=== PATIENT | male | born 1945 | race Caucasian/White ===

== ENCOUNTER 2016-10-30 18:42 | Emergency (ER) | payer MEDICARE ==
[2016-08-29 10:16] VITALS: BMI 23.0
[~2016-10-30 18:42] MED LIST: ALTACE2.5 MG PO; FLOMAX0.4 MG PO; GLUCOPHAGE500 MG PO; METOPROLOL TART50 MG PO; NEURONTIN 300300 MG PO; NORCO 7.5/325 T1 TA1 PO; OMEPRAZOLE40 MG PO; ZOCOR10 MG PO; [UNRECOGNIZED DRUG - OTHER]
== END 2016-10-30 23:41 | disposition left against medical advice (07) ==
LOC: D.ER 18:42
DX: R00.2 Palpitations (principal); E11.9 Type 2 diabetes mellitus without complications; I10 Essential (primary) hypertension

== ENCOUNTER → 2017-04-05 14:16 | Outpatient (CLI) | payer MEDICARE ==
[2016-08-29 10:16] VITALS: BMI 23.0
== END | disposition home or self-care (01) ==
LOC: D.RAD 14:16
DX: J32.9 Chronic sinusitis, unspecified (principal); R05 Cough

== ENCOUNTER → 2017-11-05 14:28 | Outpatient (CLI) | payer MEDICARE ==
[2016-08-29 10:16] VITALS: BMI 23.0
== END | disposition home or self-care (01) ==
LOC: D.CT 14:28
DX: I65.23 Occlusion and stenosis of bilateral carotid arteries (principal)

== ENCOUNTER → 2018-02-21 10:27 | Outpatient (CLI) | payer MEDICARE ==
[2016-08-29 10:16] VITALS: BMI 23.0
[~2018-02-21 10:27] MED LIST changes: +BRILINTA90 MG PO; +EC-NAPROSYN500 MG PO; +ULTRAM50 MG PO
== END | disposition home or self-care (01) ==
LOC: D.US 10:27
DX: N50.89 Other specified disorders of the male genital organs (principal)

== ENCOUNTER 2018-04-06 10:54 | Emergency (ER) | payer MEDICARE ==
[~2018-04-06] VITALS: Ht 177.8 cm; Wt 68.2 kg
[~2018-04-06 10:54] MED LIST changes: -BRILINTA90 MG PO; -EC-NAPROSYN500 MG PO; -ULTRAM50 MG PO
[2018-04-06 10:58] VITALS: Ht 177.8 cm; Wt 68.2 kg
[2018-04-06] MEDS ORDERED: EC-NAPROSYN500 MG PO (14:06)
[2018-04-06] MEDS ORDERED: ULTRAM50 MG PO (14:06)
[2018-04-06 14:11] VITALS: BP 162/75
== END 2018-04-06 14:11 | disposition home or self-care (01) ==
LOC: D.ER 10:54
DX: M25.551 Pain in right hip (principal); M16.11 Unilateral primary osteoarthritis, right hip; I10 Essential (primary) hypertension

== ENCOUNTER → 2018-04-11 14:27 | Outpatient (CLI) | payer MEDICARE ==
[2018-04-06 10:58] VITALS: BMI 21.5
[~2018-04-11 14:27] MED LIST changes: +BRILINTA90 MG PO; +EC-NAPROSYN500 MG PO; +ULTRAM50 MG PO
== END | disposition home or self-care (01) ==
LOC: D.MRI 14:27
DX: M25.551 Pain in right hip (principal)

== ENCOUNTER 2018-04-15 10:27 | Outpatient (CLI) | payer MEDICARE ==
[~2018-04-15] VITALS: Ht 177.8 cm; Wt 72.7 kg
--- NOTE | ~2018-04-15 | HEMODYNAMI ---
PATIENT:JAD GARAY MEDICAL RECORD: [id number] : 49 LOCATION:[facility] ADMISSION DATE: 04/15/18 Generatedon:04/15/201813:57 Patient name: JAD GARAY Patient #: [id number] SSN: DO B: 1945 Date of study: 04/15/2018 Page: Of Hemodynamic Procedure Report Patient Data Patient Demographics Procedure consent was obtained First Name: JAD Gender: Male Last Name: JARROD : 1945 Middle Initial: GLORIA Age: 72 year(s) Patient #: [id number] Race: Unknown Additional ID: [id number] Contact details [address]: [address] [place] [address] State: [place] City: [place] Zip code: [address] Past Medical History Allergies Allergen Reaction Date Comments Reported Other allergy 04/15/2018 sulfa Admission Admission Data Admission Date: 04/15/2018 Admission Time: 10:27 Lab Results Lab Result Date: 04/15/2018 Lab Result Time: 11:35 Biochemistry Name Units Result Min Max BUN mg/dl 16 --(---*)-- 7 18 Creatinine mg/dl 0.7 --(*---)-- 0.6 1.3 CBC Name Units Result Min Max Hematocrit % 45 --(*---)-- 42 54 Hemoglobin g/dl 15.5 --(-*--)-- 13.5 17.5 Procedure Procedure Types Cath Procedure Diagnostic Procedure LHC LHC w/Coronaries w/Grafts Sedation Charges Moderate Sedation up to 45 minutes PCI Procedure Coronary Stent Coronary Stent Initial Peripheral Cath Diagnostic Procedure Cath Peripheral Procedure Description Procedure Date Procedure Date: 04/15/2018 Procedure Start Time: 13:03 Procedure End Time: 13:56 Procedure Staff Name Function Parviz Tate MD Performing Physician Rafael Enciso RT Monitor Edmund Bush RN Nurse Shira Butler RT Scrub Procedure Data Cath Procedure Fluoroscopy Diagnostic fluoroscopy Total fluoroscopy Time: time: 12.9 min 12.9 min Diagnostic fluoroscopy Total fluoroscopy dose: 902 dose: 902 mGy mGy Contrast Material Contrast Material Type Amount (ml) Isovue 300 202 Entry Location Entry Primary Successful Side Size Upsize Upsize Entry Closure Succes sful Closure Location (Fr) 1 (Fr) 2 (Fr) Remarks Device Remarks Femoral Right 5 Fr 6 Fr Exoseal artery Short Estimated blood loss: 10 ml Diagnostic catheters Device Type Used For End Catheter Placement MULTIPACK JL 4.0 5Fr Procedure catheter DIAGNOSTIC AR MOD 5Fr Procedure Catheter ([id number]) DIAGNOSTIC IMT 5Fr Procedure Catheter ([id number]) MULTIPACK Pigtail 5 Fr Procedure catheter DIAGNOSTIC AR 2 MOD 5 Fr Procedure catheter ([id number]) Procedure Complications No complications Procedure Medications Medication Administration Route Dosage 0.9% NaCl I.V. 100 ml/hr Oxygen etCO2 Nasal cannula 2 l/min Heparin Flush Bag added to field 2 bags (1000units/500ml NS) Lidocaine 2% added to field 20 Benadryl I.V. 50 mg Versed I.V. 2 mg Fentanyl I.V. 100 mcg Versed I.V. 1 mg Heparin Bolus I.V. 7300 units Brilinta P.O. 180 mg Hemodynamics Rest HGB: 15.5 (g/dl) Heart Rate: 52 (bpm) Pressure Samples Time Site Value (mmHg) Purpose Heart Use Rate(bpm) 13:17 LV 144/-12,9 Snapshot 71 Gradients Valve Time Site Site Mean SEP/DFP Peak To Heart Use 1 2 (mmHg) (sec/min) Peak Rate (mmHg) (bpm) Aortic 13:18 LV AO 72 Snapshots Pre Cath Intra NCS Post Cath Vital Signs Time Heart Resp SPO2 etCO2 NIBP (mmHg) Rhythm Pain Sedation Rate (ipm) (%) (mmHg) Status Level (bpm) 12:43:38 54 15 98 0 168/68(125) NSR 0 (11) 10(A) , No pain 12:48:31 55 24 98 30.8 168/80(133) NSR 0 (11) 10(A) , No pain 12:53:22 56 15 99 36 161/67(130) NSR 0 (11) 10(A) , No pain 12:58:08 64 24 98 0 155/74(111) NSR 0 (11) 10(A) , No pain 13:02:59 69 26 98 35.3 157/74(120) NSR 0 (11) 10(A) , No pain 13:07:46 68 14 96 0 155/68(116) NSR 0 (11) 9(A) , No pain 13:12:35 75 17 96 0 158/73(125) NSR 0 (11) 9(A) , No pain 13:17:19 74 16 98 32.3 139/63(105) NSR 0 (11) 9(A) , No pain 13:22:06 68 12 98 1.5 142/67(117) NSR 0 (11) 9(A) , No pain 13:27:24 68 22 98 9.7 149/63(114) NSR 0 (11) 9(A) , No pain 13:32:11 74 16 98 0 154/71(103) NSR 0 (11) 9(A) , No pain 13:36:59 87 17 98 35.3 169/78(141) NSR 0 (11) 9(A) , No pain 13:41:50 80 25 98 9 173/76(123) NSR 0 (11) 9(A) , No pain 13:46:39 75 14 97 0 162/74(122) NSR 0 (11) 9(A) , No pain 13:51:24 71 16 95 0 149/71(112) NSR 0 (11) 10(A) , No pain 13:56:10 67 18 97 27.8 146/68(116) NSR 0 (11) 10(A) , No pain Medications Time Medication Route Dose Verified Delivered Reason Notes Effectiveness by by 12:45:27 0.9% NaCl I.V. 100 Edmund Edmund Per physician ml/hr Rachelle Bush RN RN 12:45:50 Oxygen etCO2 2 Edmund Edmund Per physician Nasal l/min Rachelle Bush cannula RN RN 12:46:01 Heparin Flush added 2 Edmund Edmund used for Bag to bags Rachelle Bush procedure (1000units/500ml field MORRIS RN NS) 12:46:13 Lidocaine 2% added 20ml Edmund Edmund for local to vial Rachelle Bush anesthetic field MORRIS RN 12:46:24 Benadryl I.V. 50 mg Edmnud Edmund Per physician Rachelle Bush RN, RN 13:01:27 Versed I.V. 2 mg Edmund Edmund for sedation Rachelle Bush RN, RN 13:01:36 Fentanyl I.V. 100 Edmund Edmund for sedation mcg Rachelle Bush RN, RN 13:05:34 Versed I.V. 1 mg Edmund Edmund for sedation Rachelle Bush RN, RN 13:29:51 Heparin Bolus I.V. 7,300 Edmund Edmund for units Rachelle Bush anticoagulation RN RN 13:52:40 Brilinta P.O. 180 Edmund Edmund for mg Rachelle Bush antiplatelet RN RN therapy Procedure Log Time Note 12:17:55 Time tracking: Regular hours (M-F 7:00 - 5:00) 12:17:59 Plan of Care:Hemodynamics will remain stable., Cardiac rhythm will remain stable., Comfort level will be maintained., Respiratory function will remain adequate., Patient/ family verbilizes understanding of procedure., Procedure tolerated without complication., Recovers from procedure without complications.. 12:29:42 Edmund Bush RN sent for patient. Start room use. 12:31:18 Patient received from Pre/Post Procedure Room to CCL 1 Alert and oriented. Tansferred to table in Supine position. 12:31:19 Warm blankets applied, and nas hugger turned on for patient comfort. 12:31:20 Correct patient and procedure confirmed by team. 12:31:21 Signed procedure consent form obtained from patient. 12:31:22 ECG and BP/O2 sat monitors applied to patient. 12:31:23 Full Disclosure recording started 12:41:57 Vital chart was started 12:41:59 Baseline sample Acquired. 12:42:05 Rhythm: sinus rhythm 12:44:16 H&P Date Dictated: 04/03/2018 Within 30 days and on chart., H&P Addendum completed by physician on day of procedure. (MUST COMPLETE FOR ALL OUTPATIENTS). 12:44:17 Pre-procedure instructions explained to patient. 12:44:18 Pre-op teaching completed and patient verbalized understanding. 12:44:19 Family in waiting room. 12:44:20 Patient NPO since Midnight. 12:44:27 Patient allergic to Other allergysulfa 12:45:27 0.9% NaCl 100 ml/hr I.V. was administered by Edmund Lorigan RN; Per physician; 12:45:50 Oxygen 2 l/min etCO2 Nasal cannula was administered by Edmund Bush RN; Per physician; 12:46:01 Heparin Flush Bag (1000units/500ml NS) 2 bags added to field was administered by Edmund Bush RN; used for procedure; 12:46:13 Lidocaine 2% 20ml vial added to field was administered by Edmund Bush RN; for local anesthetic; 12:46:24 Benadryl 50 mg I.V. was administered by Edmund Bush RN; Per physician; 12:50:25 Is the patient allergic to Iodine/contrast media? No. 12:50:46 Is patient on blood thinner?No 12:50:47 Patient diabetic? Yes. 12:50:48 If diabetic: On Metformin? Yes 12:50:52 If on Metformin: Last Dose? 04/14/2018 12:50:57 Previous problem with sedation/anesthesia? No ? 12:50:59 Snore? Yes 12:51:00 Sleep apnea? No 12:51:01 Deviated septum? No 12:51:02 Opens mouth fully? Yes 12:51:03 Sticks out tongue? Yes 12:51:05 Airway obstruction? No ? 12:51:18 Dentures? No ? 12:51:21 Pre procedure: right dorsailis pedis pulse 2+ Normal; easily identifiable; not easily obliterated 12:51:23 Patient pain scale 0/10 ?. 12:52:25 IV patent on arrival in left forearm with 0.9% NaCl at [facility]. 12:52:56 Lab Result : BUN 16 mg/dl 12::56 Lab Result : Hemoglobin 15.5 g/dl 12:52:56 Lab Result : Creatinine 0.7 mg/dl 12:52:56 Lab Result : Hematocrit 45 % 12:53:00 Lab results completed and on chart. 12:53:02 Right groin area was prepped with chlora-prep and draped in sterile fashion 12:53:03 Alarms reviewed by R. N. 12:53:04 Sharps counted by scrub and verified by R.N. 12:53:07 Use device set Femoral Dx 12:53:07 ACIST Syringe (96980) opened to sterile field. 12:53:08 Bag Decanter (2002S) opened to sterile field. 12:53:08 Medline Cath Pack ([id number]) opened to sterile field. 12:53:09 ACIST Hand Control (26486) opened to sterile field. 12:53:10 ACIST Manifold (84216) opened to sterile field. 12:53:11 Tegaderm 4 x 4 (1626W) opened to sterile field. 12:53:13 SHEATH Prelude 5Fr 0.035 (UCE-0I-07-035) opened to sterile field. 12:53:14 DIAGNOSTIC WIRE .035 260cm J wire (225264) opened to sterile field. 12:53:15 DIAGNOSTIC Multipack 5Fr catheter set ([id number]) opened to sterile field. 12:54:40 Zero performed for pressure channel P1 13:00:38 Physician arrived 13:00:38 --------ALL STOP TIME OUT------ 13:00:38 Final Timeout: patient, procedure, and site verified with staff and physician. All members of the team are in agreement. 13:00:40 Right groin site verified by team. 13:00:43 Physical assessment completed. ASA score P 2 - A patient with mild systemic disease as per Parviz Tate MD. 13:00:47 Sedation plan: IV Moderate Sedation Medication:Versed, Fentanyl 13:01:27 Versed 2 mg I.V. was administered by Edmund Bush RN; for sedation; 13:01:36 Fentanyl 100 mcg I.V. was administered by Edmund Bush RN; for sedation; 13:03:23 Procedure started. 13:03:26 Local anesthetic to right femoral artery with Lidocaine 2% by Parviz Tate MD.INITIAL ACCESS ONLY 13:04:49 A 5 Fr sheath was inserted into the Right Femoral artery 13:05:11 A MULTIPACK JL 4.0 5Fr catheter was advanced over the wire and used for Procedure. 13:05:34 Versed 1 mg I.V. was administered by Edmund Bush RN; for sedation; 13:06:18 LCA angiography performed. 13:07:13 Catheter exchanged over wire. 13:07:48 A DIAGNOSTIC AR MOD 5Fr Catheter ([id number]) was advanced over the wire and used for Procedure. 13:08:16 RCA angiography performed. 13:10:34 Catheter exchanged over wire. 13:10:40 A DIAGNOSTIC IMT 5Fr Catheter ([id number]) was advanced over the wire and used for Procedure. 13:12:47 REID to LAD angiography performed. 13:16:49 Catheter exchanged over wire. 13:16:57 A MULTIPACK Pigtail 5 Fr catheter was advanced over the wire and used for Procedure. 13:17:40 LV gram done using MEHTA 13:17:42 Injector settings: Ml/sec: 10, Volume: 20, 13:17:48 EF : 60 % 13:17:49 LV hemodynamics recorded. 13:19:19 Catheter exchanged over wire. 13:19:40 A DIAGNOSTIC AR 2 MOD 5 Fr catheter ([id number]) was advanced over the wire and used for Procedure. 13:21:58 SVG to LAD angiography performed. 13:22:00 SVG to Diag angiography performed. 13:23:10 Catheter removed. 13:23:25 TUBING High Pressure Extension Tubing ([employer]) (UM7277I) opened to sterile field. 13:23:26 INFLATOR Merit BasixCompak (TM2503) opened to sterile field. 13:23:27 SHEATH Prelude 6Fr 0.035 (JYH-1Y-72-035) opened to sterile field. 13:23:35 GUIDE 6FR AR 1.0 catheter ([id number]) opened to sterile field. 13:25:42 Sheath upsized to a 6 Fr Short. 13:26:09 6 Fr ar 1 guide catheter was inserted over the wire 13:28:11 BMW 300cm [place] 2 J wire ([id number]) opened to sterile field. 13:28:17 bmw wire advanced. 13:28:20 Wire advanced across lesion. 13:29:51 Heparin Bolus 7,300 units I.V. was administered by Edmund Bush RN; for anticoagulation; 13:30:30 Inflate balloon Inflation number: 1 A EUPHORA 2.0 x 20 Balloon ([id number]) was prepped and advanced across the Prox RCA, then inflated to 12 KIRSTEN for 0:10 (min:sec). 13:30:54 Inflation number: 1 The EUPHORA 2.0 x 20 Balloon ([id number]) was reinflated across the Mid RCA, to 12 KIRSTEN for 0:10 (min:sec). 13:31:57 Balloon removed over the wire. 13:35:32 Place stent Inflation Number: 2 A INTEGRITY OTW 3.0 X 26 stent ([id number]) was prepped and advanced across the Mid RCA. The stent was deployed at 12 KIRSTEN for 0:10 (min:sec). 13:36:20 Stent catheter was removed intact over wire. 13:41:07 The INTEGRITY RX 3.0 x 30 stent ([id number]) was advanced then removed because device failure 13:43:34 Place stent Inflation Number: 2 A INTEGRITY RX 3.0 x 30 stent ([id number]) was prepped and advanced across the Prox RCA. The stent was deployed at 14 KIRSTEN for 0:10 (min:sec). 13:45:11 Stent catheter was removed intact over wire. 13:48:30 Place stent Inflation Number: 3 A INTEGRITY OTW 3.0 X 12 stent ([id number]) was prepped and advanced across the Prox RCA. The stent was deployed at 14 KIRSTEN for 0:10 (min:sec). 13:49:02 EXOSEAL 6Fr (EX600) opened to sterile field. 13:49:07 Stent catheter was removed intact over wire. 13:49:08 Wire removed. 13:49:08 Guide catheter removed. 13:49:14 Sheath removed intact; hemostasis achieved with Exoseal to the Right Femoral artery. 13:49:16 Procedure ended.(Physican Out) 13:49:36 Fluoroscopy time 12.90 minutes. 13:50:37 Fluoroscopy dose: 902 mGy 13:50:37 Flurop Dose total: 902 13:52:02 Contrast amount:Isovue 300 202ml. 13:52:09 Sharps counted by scrub and verified by R.N. 13:52:10 Insertion/operative site no bleeding no hematoma. 13:52:13 Post-op/insertion site Right Femoral artery dressed using a 4 x 4 and Tegaderm. 13:52:17 Post right femoral artery:stable, soft, clean and dry 13:52:19 Post Procedure Pulses reassessed and unchanged 13:52:22 Post-procedure physical assessment completed. ASA score P 2 - A patient with mild systemic disease as per Parviz Tate MD. 13:52:27 Post procedure rhythm: unchanged. 13:52:30 Estimated blood loss: 10 ml 13:52:33 Post procedure instruction explained to patient.Patient verbalizes understanding. 13:52:33 Patient needs reinforcement of post procedure teaching. 13:52:40 Brilinta 180 mg P.O. was administered by Edmund Buhs RN; for antiplatelet therapy; 13:53:20 Procedure type changed to Cath procedure, Diagnostic procedure, LHC, LHC w/Coronaries w/Grafts, Sedation Charges, Moderate Sedation up to 45 minutes, PCI procedure, Coronary Stent, Coronary Stent Initial, Peripheral Cath Diagnostic Procedure, Cath Peripheral 13:56:05 Procedure and supply charges have been captured, reviewed, submitted and are correct. 13:56:07 Procedure Complication : No complications 13:56:09 Vital chart was stopped 13:56:10 See physician's report for complete and final results. 13:56:11 Report given to Pre/Post Procedure Room. 13:56:15 Patient transfered to Pre/Post Procedure Room with Stretcher. 13:56:21 Procedure ended. 13:56:21 Full Disclosure recording stopped 13:56:40 End room use (Document Last) Intervention Summary Intervention Notes Time ActionType Lesion and Equipment Action# Pressure Duration Attributes Used 13:30:30 Inflate Prox RCA EUPHORA 2.0 1 12 00:10 balloon x 20 Balloon ([id number]) 13:30:54 Reinflate Mid RCA EUPHORA 2.0 1 12 00:10 balloon x 20 Balloon ([id number]) 13:35:32 Place stent Mid RCA INTEGRITY 2 12 00:10 OTW 3.0 X 26 stent ([id number]) 13:41:07 Discard INTEGRITY RX Stent 3.0 x 30 stent ([id number]) 13:43:34 Place stent Prox RCA INTEGRITY RX 2 14 00:10 3.0 x 30 stent ([id number]) 13:48:30 Place stent Prox RCA INTEGRITY 3 14 00:10 OTW 3.0 X 12 stent ([id number]) Device Usage Item Name Manufacture Quantity Catalog Number Hospital Part Current Minimal Lot# / Charge Number Stock Stock Serial# Code ACIST Syringe Acist 1 93836 123547 324632 285167 20 (61808) Quewey Inc Bag Decanter Microtek 1 882755 05722 285483 5 () Hemarina Inc. Medline Cath Cardinal 1 [id number] 043420 60241 616125 5 Pack Health ([id number]) ACIST Hand Acist 1 86537 727248 204351 279933 5 Control (05919) Medical Systems Inc ACIST Manifold Acist 1 61280 388960 771555 580551 5 (18569) Medical Systems Inc Tegaderm 4 x 4 3M 1 1626W 489534 410148 030930 5 (1626W) SHEATH Prelude Merit 1 JFG-2T-68-035 144846 911073 873930 5 5Fr 0.035 Medical (RTT-2R-34-035) DIAGNOSTIC WIRE St Michele 1 108022 469222 631251 261169 30 .035 260cm J wire (166968) DIAGNOSTIC Cardinal 1 PU1204 257278 17430 020393 30 Multipack 5Fr Health catheter set (VT2976) MULTIPACK JL Cardinal 1 479627 5 4.0 5Fr Health catheter DIAGNOSTIC AR Cardinal 1 [id number] 248297 266931 607122 15 MOD 5Fr Health Catheter (490614C) DIAGNOSTIC IMT [place] 1 [id number] 962093 438344 67115 5 5Fr Catheter Scientific ([id number]) MULTIPACK Cardinal 1 663772 5 Pigtail 5 Fr Health catheter DIAGNOSTIC AR 2 Cardinal 1 [id number] 085378 050696 245048 20 MOD 5 Fr Health catheter (343563X) TUBING High Merit 1 [id number] 770820 14103 800158 10 Pressure Medical Extension Tubing (Tate) (LO8752I) INFLATOR Merit Merit 1 BT6471 897460 190120 213081 15 BasixCompak Medical (ML3121) SHEATH Prelude Merit 1 BQX-8O-24-35 125787 5078900 646027 5 6Fr 0.035 Medical (MGM-1V-96-035) GUIDE 6FR AR Medtronic 1 IQ0BG76 643216 39551 432766 1 1.0 catheter (KU6TT48) BMW 300cm [place] 1 2231522Q 774849 294184 120785 5 [place] 2 J Vascular wire (5121120F) EUPHORA 2.0 x Medtronic 1 [id number] 674810 485327 303005 5 [id number] 20 Balloon (IIU4241P) INTEGRITY OTW Medtronic 1 [id number] 821442 256586 0 [id number] 3.0 X 26 stent ([id number]) INTEGRITY RX Medtronic 2 [id number] 719270 483554 328324 5 [id number] 3.0 x 30 stent [id number] ([id number]) INTEGRITY OTW Medtronic 1 [id number] 291397 299176 2 [id number] 3.0 X 12 stent ([id number]) EXOSEAL 6Fr Cardinal 1 EX600 673336 100299 985963 10 (EX600) Health Signature Audit Spelter Stage Time Signature Unsigned Intra-Procedure 04/15/2018 Rafael Enciso 1:57:29 PM RT(R) Signatures Monitor : Rafael Enciso RT Signature : Date : Time : [address] [address]
[~2018-04-15 10:27] MED LIST changes: -BRILINTA90 MG PO
[2018-04-15 11:23] VITALS: BP 184/62; Ht 177.8 cm; Wt 72.7 kg
[2018-04-15 11:38] LABS: BASOPHILS 0.3 % (0-2); EOSINOPHILS 0.9 % (0-7); HEMOGLOBIN 15.5 g/dL (13.5-17.5); IMMATURE GRANULOCYTES 0.3 % (0-5); LYMPHOCYTES 16.2 % (15-50); MCH 32.3 pg (26.0-34.0); MCHC 34.4 g/dL (31.0-37.0); MCV 93.8 fL (80.0-100.0); MEAN PLATELET VOLUME 10.6 fL (7.4-10.4); MONOCYTES 9.9 % (2-11); NEUTROPHILS 72.4 % (40-80); PLATELET COUNT 185 10x3/uL (130-400); RDW 12.2 % (11.5-14.5); WBC 6.8 10x3/uL (4.8-10.8)
[2018-04-15 12:04] LABS: CALC OSMOLALITY 280 mosm/kg (275-300); CALCIUM 9.5 mg/dL (8.5-10.1); CARBON DIOXIDE 30.2 mmol/L (21.0-32.0); CHLORIDE - SERUM 103 mmol/L (98-107); CREATININE - SERUM 0.7 mg/dL (0.6-1.3); GLUCOSE 83 mg/dL (74-106); POTASSIUM - SERUM 4.4 mmol/L (3.5-5.1); SODIUM 141 mmol/L (136-145); UREA NITROGEN 16 mg/dL (7-18); eGFR NON AFRICAN AMERICAN > 90 mL/min (90-120)
[2018-04-15] MEDS ORDERED: BRILINTA90 MG PO (14:15)
== END 2018-04-15 18:21 ==
LOC: D.CATH 10:27
PROVIDERS: Internal Medicine Cardiovascular Disease
DX: I25.119 Atherosclerotic heart disease of native coronary artery with unspecified angina pectoris (principal); Z01.812 Encounter for preprocedural laboratory examination

== ENCOUNTER → 2018-04-28 10:00 | Outpatient (CLI) | payer MEDICARE ==
[2018-04-15 11:23] VITALS: BMI 23.0
[~2018-04-28 10:00] MED LIST changes: +BRILINTA90 MG PO
== END | disposition home or self-care (01) ==
LOC: D.CT 10:00 → D.MRI 13:00
DX: M47.816 Spondylosis without myelopathy or radiculopathy, lumbar region (principal); I25.10 Atherosclerotic heart disease of native coronary artery without angina pectoris

== ENCOUNTER → 2018-06-04 12:04 | Outpatient (CLI) | payer MEDICARE ==
[2018-04-15 11:23] VITALS: BMI 23.0
== END | disposition home or self-care (01) ==
LOC: D.SP 12:04 → D.RAD 13:00
DX: M53.3 Sacrococcygeal disorders, not elsewhere classified (principal); Z01.812 Encounter for preprocedural laboratory examination

== ENCOUNTER → 2018-11-27 13:43 | Outpatient (CLI) | payer MEDICARE ==
[2018-04-15 11:23] VITALS: BMI 23.0
== END | disposition home or self-care (01) ==
LOC: D.CT 13:30
PROVIDERS: ATTEND Internal Medicine Cardiovascular Disease
DX: I65.23 Occlusion and stenosis of bilateral carotid arteries (principal)

== ENCOUNTER 2019-02-23 12:49 | Inpatient (IN) | payer MEDICARE ==
[2019-02-23] MEDS ORDERED: HYDROCODON-ACE1 EAC2 PO (13:21)
[2019-02-23] MEDS ORDERED: PROSCAR5 MG PO (13:23)
[2019-02-23] MEDS ORDERED: BAYER CHEWABLE81 MG PO (13:24)
[2019-02-23] MEDS ORDERED: NORVASC5 MG PO (13:24)
[2019-02-23] MEDS ORDERED: TURMERIC PO (13:25)
[2019-02-23] MEDS ORDERED: CO Q-10200 MG PO (13:25)
[2019-02-23] MEDS ORDERED: CURCUMIN PO (13:25)
[2019-02-23] MEDS ORDERED: MAGNESIUM OXID250 MG PO (13:26)
[2019-02-23] MEDS ORDERED: CENTRUM MEN'S1 EACH PO (13:26)
[2019-02-23] MEDS ORDERED: KRILL OIL 1,001 EAC1 PO (13:26)
[2019-02-23] MEDS ORDERED: CITRACAL + D E1 EACH PO (13:26)
[2019-02-23] MEDS ORDERED: SUDAFED 30 MG T30 MG PO (13:27)
[2019-02-23] MEDS ORDERED: PROBIOTIC BLEN1 EACH (13:27)
[2019-02-23 14:54] LABS: HEMATOCRIT 42.1 % (42.0-54.0); HEMOGLOBIN 14.5 g/dL (13.5-17.5); MCH 31.7 pg (26.0-34.0); MCHC 34.4 g/dL (31.0-37.0); MCV 92.1 fL (80.0-100.0); RBC 4.57 10x6/uL (4.20-6.10); RDW 12.5 % (11.5-14.5); WBC 6.6 10x3/uL (4.8-10.8)
[2019-02-23 15:01] LABS: APTT 33.8 SECONDS (22.8-39.4); INR 1.08 (0.85-1.17); PROTIME 13.5 SECONDS (11.6-15.0)
[2019-02-23 15:06] LABS: ALBUMIN 4.4 g/dL (3.4-5.0); ALKALINE PHOSPHATASE 55 U/L (46-116); ALT (SGPT) 29 U/L (10-68); BILIRUBIN - TOTAL 0.61 mg/dL (0.2-1.3); CALC OSMOLALITY 286 mosm/kg (275-300); CALCIUM 9.9 mg/dL (8.5-10.1); CHLORIDE - SERUM 105 mmol/L (98-107); CREATININE - SERUM 0.8 mg/dL (0.6-1.3); GLUCOSE 78 mg/dL (74-106); POTASSIUM - SERUM 3.6 mmol/L (3.5-5.1); PROTEIN - SERUM 7.7 g/dL (6.4-8.2); SODIUM 143 mmol/L (136-145); UREA NITROGEN 22 mg/dL (7-18); eGFR NON AFRICAN AMERICAN > 90 mL/min (90-120)
[2019-02-23 15:52] LABS: APPEARANCE CLEAR (CLEAR); BILIRUBIN NEGATIVE (NEGATIVE); COLOR YELLOW (YELLOW); GLUCOSE NEGATIVE (NEGATIVE); KETONE NEGATIVE (NEGATIVE); NITRITE NEGATIVE (NEGATIVE); PROTEIN NEGATIVE (NEGATIVE); SPECIFIC GRAVITY 1.025 (1.005-1.020); UROBILINOGEN NORMAL (NORMAL)
[2019-02-25] VITALS (32 sets, daily range): BP systolic 110–137; BP diastolic 32–65; BMI 22.2
[2019-02-25] MEDS ORDERED: PLAVIX75 MG PO (08:44)
--- NOTE | 2019-02-25 15:41 | NUR ---
1511- REC'D CVICU. ALL MONITORING EQUIPMENT ATTACHED. VSS. NO NEURO DEFICITS NOTED.
--- NOTE | 2019-02-25 16:11 | NUR ---
PT C/O PAIN TO NECK. PO PAIN MED GIVEN. I.S. STARTED. PT PULLS I.S.
[2019-02-26] VITALS (69 sets, daily range): BP systolic 114–165; BP diastolic 42–94; BMI 22.2
--- NOTE | 2019-02-26 08:00 | NUR ---
PT RESTING COMFORTABLY IN BED. INCISION ON LEFT ANTERIOR NECK NOTED C/D/I. ERAN DRAIN TO SHELLEY CHEST NOTED WITHD DRESSING CDI. R-SUBCLAVIAN CVL WITH CLEVIPREX AT 9MG/HR, PLASMOLYTE AT 30ML/HR, ZINACEF AT 11.4. DIANE IN PLACE WITH YELLOW URINE NOTED. COMPLETE SHIFT ASSESSMENT CHARTED IN FLOWSHEET. SAFETY MEASURES IN PLACE. WILL CONTINUE TO MONITOR.
--- NOTE | 2019-02-26 10:19 | NUR ---
A-LINE, ERAN DRAIN, AND DIANE CATHETER REMOVED PER DR. PAT'S ORDERS. PT UP IN CHAIR. CHICKEN BROTH AND ORANGE JELLO PROVIDED. PT STATES THAT HIS THROAT IS SORE. WILL CONTINUE TO MONITOR.
--- NOTE | 2019-02-26 11:29 | NUR ---
CLEVIPREX TURNED OFF AT THIS TIME. WILL CONTINUE TO MONITOR.
--- NOTE | 2019-02-26 13:58 | NUR ---
ATE ABOUT 70% OF LUNCH TRAY. RESTING COMFORTABLY IN CHAIR. HR IN 50S-60S AND SBP 143. DR. PAT MADE AWARE. WILL CONTINUE TO MONITOR.
--- NOTE | 2019-02-26 14:05 | OP ---
PATIENT NAME: JAD GARAY MEDICAL RECORD: [id number] :[birth year] [facility] ADMISSION DATE:02/25/19 SURGEON: BRENDEN PAT MD DATE OF OPERATION: 02/25/2019 SURGEON: Brenden Pat MD COST SPECIALIST: Chaparro Shepherd OPERATION PERFORMED: Left carotid endarterectomy. PREOPERATIVE DIAGNOSIS: Symptomatic left carotid stenosis. POSTOPERATIVE DIAGNOSIS: Symptomatic left carotid stenosis. ANESTHESIA: General endotracheal anesthesia. ESTIMATED BLOOD LOSS: 20 cc. COMPLICATIONS: None. SPECIMENS: Plaque. CONDITION: Stable. DISPOSITION: CV ICU. OPERATIVE FINDINGS: 1. Irregular, soft plaque in the proximal internal carotid artery in a relatively small-caliber left internal carotid artery. The plaque feathered well distally and a patch repair was performed. 2. Neurologically intact to CV ICU. OPERATIVE INDICATION: Severe left internal carotid artery stenosis. OPERATIVE SUMMARY IN DETAIL: The patient was brought to the operating suite. General anesthesia was obtained. The patient was prepped and draped. Left neck incision was made and taken down to subcutaneous tissue and platysma muscle. Common carotid artery was dissected out. Facial venous branches were divided between ligatures. External carotid was dissected out. Internal carotid was dissected out distally, preserving the ANSA. Heparin was given. After the heparin circulated, backbleeding was controlled with a bulldog clamp and flow with a vascular clamp and backbleeding to the external carotid with a Vesseloop. EEG and cerebral oximetry were monitored and were without change after 2 minutes. Then, the endarterectomy was begun by opening the common carotid artery and taken to the region of irregular and soft plaque and into a relatively normal region of the internal carotid. The plaque was amputated in the common carotid artery. An eversion endarterectomy of the external carotid was performed and the plaque feathered well distally. Thorough irrigation was undertaken. All bits of loose debris were removed. A CorMatrix patch was fashioned to the appropriate size and sutured along the edge of the arteriotomy. Prior to completing the anastomosis, backbleeding was allowed from all 3 major vessels and then the anastomosis was completed. Flow was restored first to the external carotid and then to the internal carotid. Individual patch sutures were used for hemostasis. Protamine was given after a total of 7500 of OPERATIVE REPORT [id number] JARROD,JAD EDWARD protamine had been given prior to clamping. A drain was placed through a separate stab wound. Thorough irrigation was undertaken. Wound was closed in 3 layers including Dermabond on the skin. Anesthesia was reversed. The patient was neurologically intact to CV ICU. TRANSINT:[id number] Voice Confirmation ID: [id number] DOCUMENT ID: [id number] BRENDEN PAT MD at 1405 CC: [id number] DICTATION DATE: 02/25/19 1638 FRUIT AND VEGETABLE CLASSER: 02/25/19 2154 ADM IN [place] [id number] [place] [id number]
--- NOTE | 2019-02-26 17:59 | NUR ---
PT RATED PAIN 5/10 AT INCISION SITE. NORCO GIVEN FOR PAIN PER ORDERS.
--- NOTE | 2019-02-26 19:00 | NUR ---
REPORT RECEIVED, SHIFT ASSESSMENT COMPLETE SEE FLOW SHEET, PT AAOx4, LCEA SITE AND DRSG C/D/I, RIGHT SUBCLAVIAN CVL SALINE LOCKED, DRSG C/D/I, GONZALEZ SCD AND LIBERTY MORENO, ON MONITORS, VSS, WILL CONTINUE TO ASSESS
--- NOTE | 2019-02-26 19:31 | MORECARE ---
CASE MANAGEMENT DISCHARGE SUMMARY PATIENT: JAD GARAY UNIT: [id number] ADM DATE: 02/25/19 AGE: 73 : [birth year] SEX: M [facility] AUTHOR: AMANDA FARR PHYSICIAN: REFERRING PHYSICIAN: CAROL PAT MD DATE OF SERVICE: 02/26/19 Discharge Plan Patient Name: JAD GARAY Facility: [facility]:[place] : 1945 Planned Disposition: Home Anticipated Discharge Date: Discharge Date: Expected LOS: Initial Reviewer: [email or web address] Initial Review Date: 02/25/2019 Generated: 02/26/19 8:31 pm DCPIA - Discharge Planning Initial Assessment Updated by [email or web address]: Shaneka Su on 02/26/19 7:31 pm * Is the patient Alert and Oriented? Yes * How many steps to enter\exit or inside your home? * PCP EARLINE * Pharmacy [facility] * Preadmission Environment Home Alone * ADLs Independent * Equipment Cane * List name and contact numbers for known caregivers / representatives who currently or will assist patient after discharge: QUETA ANDUJAR [facility] - [phone] * Verbal permission to speak to the caregivers and representatives has been obtained from the patient. N/A * Community resources currently utilized None * Additional services required to return to the preadmission environment? No * Can the patient safely return to the preadmission environment? Yes * Has this patient been hospitalized within the prior 30 days at any hospital? No Patient Name: JAD GARAY Page [id number] at 1931 All edits/amendments must be made on the electronic document DICTATION DATE: 02/26/191929 DATA CODER OPERATOR: JUSTINE 02/26/191929 RPT#: [id number] DC DATE: STATUS: ADM IN [facility] [address] [place] [address] END OF REPORT
--- NOTE | 2019-02-26 19:38 | MORECARE ---
CASE MANAGEMENT DISCHARGE SUMMARY PATIENT: JAD GARAY UNIT: [id number] ADM DATE: 02/25/19 AGE: 73 : [birth year] SEX: M ROOM/BED: D.02 AUTHOR: CHIKA,DOC PHYSICIAN: REFERRING PHYSICIAN: CAROL PAT MD DATE OF SERVICE: 02/26/19 Discharge Plan Patient Name: JAD GARAY Facility: [facility]:[place] : 1945 Planned Disposition: Home Anticipated Discharge Date: Discharge Date: Expected LOS: Initial Reviewer: [email or web address] Initial Review Date: 02/25/2019 Generated: 02/26/19 8:37 pm Comments DCP- Discharge Planning Updated by [email or web address]: Shaneka Su on 02/26/19 6:[address] Patient Name: JAD GARAY Admission Status: Elective Accout number: [id number] Admission Date: 02-25-2019 : 1945 Admission Diagnosis: Attending: CAROL PAT Current LOS: 1 Anticipated DC Date: Planned Disposition: Home Primary Insurance: [employer] P[employer] MCR [employer] Discharge Planning Comments: CM met with patient at bedside after explaining CM role and obtaining verbal consent. Patient lives at home alone and plans to return there upon discharge. Patient feels this would be a safe discharge. CM discussed availability / needs of home health and medical equipment. Patient denies any discharge needs at this time. Patient states he will have a friend drive him home upon discharge. CM will continue to follow and assist as needed with discharge planning / needs. Rubber Process Hand: Shaneka Su DCPIA - Discharge Planning Initial Assessment Updated by [email or web address]: Shaneka Su on 02/26/19 7:31 pm * Is the patient Alert and Oriented? Yes * How many steps to enter\exit or inside your home? * PCP EARLINE * Pharmacy [facility] * Preadmission Environment Home Alone * ADLs Independent * Equipment Cane * List name and contact numbers for known caregivers / representatives who currently or will assist patient after discharge: QUETA ANDUJAR [facility] - [phone] * Verbal permission to speak to the caregivers and representatives has been obtained from the patient. N/A * Community resources currently utilized None * Additional services required to return to the preadmission environment? No * Can the patient safely return to the preadmission environment? Yes * Has this patient been hospitalized within the prior 30 days at any hospital? No Last DP export: 02/26/19 6:31 pm Patient Name: JAD GARAY Page [id number] at 1938 All edits/amendments must be made on the electronic document DICTATION DATE: 02/26/191936 WHEEL INSTALLER: JUSTINE 02/26/191936 RPT#: [id number] DC DATE: STATUS: ADM IN [facility] [address] [place] [address] END OF REPORT
--- NOTE | 2019-02-26 23:00 | NUR ---
REASSESSMENT COMPLETE PER FLOW SHEET, NO ACUTE CHANGES NOTED, PT RESTING WITH EYES CLOSED, WAKES EASY WITH MINIMAL STIMULI, HR SR WITH PERIODS OF PERLA IN 50'S, PHYSICIAN AWARE AND MONITORING, OTHER VSS, VOIDS WITH URINAL, CLEAR YELLOW VOID NOTED, PT DENIES NEEDS AT THIS TIME, WILL CONTINUE TO MONITOR
[2019-02-27] VITALS (20 sets, daily range): BP systolic 122–179; BP diastolic 44–79
--- NOTE | 2019-02-27 03:00 | NUR ---
REASSESSMENT COMPLETE SEE FLOW SHEET, NO ACUTE CHANGES NOTED, PT SLEEPING AND WAKES EEASY, REPOSITIONED FOR COMFORT, VSS, WILL CONTINUE TO MONITOR
--- NOTE | 2019-02-27 03:26 | NUR ---
PT C/O GENERALIZED SORE/ACHING NECK PAIN, RATED 5/10 ON NUMERIC PAIN SCALE, PRN PAIN MED GIVEN PER ORDERS/MAR, PT VSS, WILL CONTINUE TO ASSESS
--- NOTE | 2019-02-27 05:30 | NUR ---
CHG BATH GIVEN, NEW YELLOW GOWN GIVEN, COMPLETE LINEN CHANGE, PT ASSISTED TO BEDSIDE CHAIR, PT DENIES NEEDS AT THIS TIME, WILL CONTINUE TO MONITOR
--- NOTE | 2019-02-27 09:16 | NUR ---
REVIEWED CURRENT CARE PLAN AND AGREE WITH CURRENT SEQUENCING-
--- NOTE | 2019-02-27 10:36 | NUR ---
0745-DR PAT AT [facility]
--- NOTE | 2019-02-27 14:02 | NUR ---
NOTED ORDER FOR DISCHARGE RECIEVED VIA COMPUTER ENTRY ONLY-L PERIPHERAL IV D/C WITH TIP INTACT CVL LINE D/C PER POLICY AND ACCEPTED PRODEDURE-HEMOSTASIS OBTAINED-KBRN
--- NOTE | 2019-02-27 14:40 | NUR ---
HANNA AT BEDSIDE-REVIEWED WITH PT DISCHARGE PLAN AND APPOINTMENT-STRONGLY RECOMMENDED NO LONGER OVER THE COUNTER PSUEDOFED NASAL SPRAY-STRONGLY RECOMMENDED FOLLOW UP WITH PRIMARY PHYSICIAN WITH 2WKS FOR ADDITIONAL DIRECTION-IDENTIFIED DR PATTEN-PT VERBALLY AGREED-L NECK INCISION CLEAN AND INTACT
--- NOTE | 2019-02-27 22:21 | MORECARE ---
CASE MANAGEMENT DISCHARGE SUMMARY PATIENT: JAD GARAY UNIT: [id number] ADM DATE: 02/25/19 AGE: 73 : 47 SEX: M ROOM/BED: D.02 AUTHOR: CHIKA,DOC PHYSICIAN: REFERRING PHYSICIAN: CAROL PAT MD DATE OF SERVICE: 02/27/19 Discharge Plan Patient Name: JAD GARAY Facility: [facility]:[place] : 1945 Planned Disposition: Home Anticipated Discharge Date: Discharge Date: 02/27/2019 Expected LOS: Initial Reviewer: [email or web address] Initial Review Date: 02/25/2019 Generated: 02/27/19 11:21 pm DCP- Discharge Planning Updated by [email or web address]: Shaneka Su on 02/26/19 6:[address] Patient Name: JAD GARAY Admission Status: Elective Accout number: [id number] Admission Date: 02-25-2019 : 1945 Admission Diagnosis: Attending: CAROL PAT Current LOS: 1 Anticipated DC Date: Planned Disposition: Home Primary Insurance: [employer] PPO MCR ADVANT Discharge Planning Comments: CM met with patient at bedside after explaining CM role and obtaining verbal consent. Patient lives at home alone and plans to return there upon discharge. Patient feels this would be a safe discharge. CM discussed availability / needs of home health and medical equipment. Patient denies any discharge needs at this time. Patient states he will have a friend drive him home upon discharge. CM will continue to follow and assist as needed with discharge planning / needs. Labor Relations Consultant: Shaneka Su DCPIA - Discharge Planning Initial Assessment Updated by [email or web address]: Shaneka Su on 02/26/19 7:31 pm * Is the patient Alert and Oriented? Yes * How many steps to enter\exit or inside your home? * PCP EARLINE * Pharmacy [facility] * Preadmission Environment Home Alone * ADLs Independent * Equipment Cane * List name and contact numbers for known caregivers / representatives who currently or will assist patient after discharge: QUETA ANDUJAR [facility] - [phone] * Verbal permission to speak to the caregivers and representatives has been obtained from the patient. N/A * Community resources currently utilized None * Additional services required to return to the preadmission environment? No * Can the patient safely return to the preadmission environment? Yes * Has this patient been hospitalized within the prior 30 days at any hospital? No Last DP export: 02/26/19 6:37 pm Patient Name: JAD GARAY Page [id number] at 2221 All edits/amendments must be made on the electronic document DICTATION DATE: 02/27/192219 CRM ADMINISTRATOR: JUSTINE 02/27/192219 RPT#: [id number] DC DATE:02/27/19 STATUS: DIS IN [facility] [address] [place] [address] END OF REPORT
== END 2019-02-27 14:49 | disposition home or self-care (01) | DRG 39 ==
LOC: D.SDCHOLD 14:00 → D.CVICU 02-25 07:55 → D.SDCHOLD 02-25 11:00 → D.CVICU 02-25 14:57
PROVIDERS: ADMIT Thoracic Surgery (Cardiothoracic Vascular Surgery); ATTEND Thoracic Surgery (Cardiothoracic Vascular Surgery)
PROC: 03UL0JZ Supplement Left Internal Carotid Artery with Synthetic Substitute, Open Approach (ICD-10-PCS; 2019-02-25)
PROC: 03CL0ZZ Extirpation of Matter from Left Internal Carotid Artery, Open Approach (ICD-10-PCS; principal; 2019-02-25 11:00)
DX: I65.22 Occlusion and stenosis of left carotid artery (principal); R00.1 Bradycardia, unspecified; E11.9 Type 2 diabetes mellitus without complications; E78.5 Hyperlipidemia, unspecified; I10 Essential (primary) hypertension; I25.10 Atherosclerotic heart disease of native coronary artery without angina pectoris; K21.9 Gastro-esophageal reflux disease without esophagitis; I49.3 Ventricular premature depolarization